=== PATIENT | female | born 1970 | race African-American/Black ===

== ENCOUNTER 2016-08-14 07:38 | Emergency (ER) | payer OTHER, MEDICAID ==
[~2016-08-14] VITALS: Ht 167.6 cm; Wt 93.0 kg
[2016-08-14 07:48] VITALS: BP 117/86
== END 2016-08-14 12:14 | disposition left against medical advice (07) ==
LOC: ER 12:11
DX: M25.519 Pain in unspecified shoulder (principal); Z53.21 Procedure and treatment not carried out due to patient leaving prior to being seen by health care provider

== ENCOUNTER 2018-03-29 06:59 | Emergency (ER) | payer MEDICAID, OTHER | END 2018-03-29 08:19 | disposition left against medical advice (07) | LOC: ER 08:19 | DX: Z53.21 Procedure and treatment not carried out due to patient leaving prior to being seen by health care provider (principal) ==